=== PATIENT | female | born 1980 | race Caucasian/White ===

== ENCOUNTER 2017-03-16 11:51 | Emergency (ER) | payer MEDICAID, OTHER ==
[~2017-03-16] VITALS: Ht 167.6 cm; Wt 60.0 kg
[~2017-03-16 11:51] MED LIST: OMEP40CA2 PO
[2017-03-16 11:52] VITALS: BP 116/74; PULSE 82; RESP 17; TEMP 98.2; O2SAT 99
--- NOTE | 2017-03-16 12:12 | PD ---
HPI Chief Complaint: Injury Time Seen by Provider: 12:07 Travel History International Travel<30 days: No Contact w/Intl Traveler<30days: No Traveled to known affect area: No History of Present Illness HPI 36-year-old female presents emergency department for evaluation of right foot pain. Patient reports she was playing tag football with her son this morning when she injured the foot by either twisting or stubbing the foot on another player. She reports pain with weightbearing. Symptoms severity mild-to- moderate. No alleviating factors. She denies numbness/tingling/weakness of the extremity. There is no obvious deformity. Patient has no other medical complaint. [facility] Past Medical History Medical History: Denies Significant Hx Diminished Hearing: No ?: Not LMP: 03/02/14 : 8 Para: 5 Miscarriage: 3 Ovarian Cysts: Yes Social History Alcohol Use: No Tobacco Use: Yes (1/2 PPD) Substance Use: No Allergies-Medications (Allergen,Severity, Reaction): Coded Allergies: Penicillin (Verified Allergy, Severe, NAUSEA AND ITCHING., 03/16/17) Reported Meds & Prescriptions Reported Meds & Active Scripts Active Review of Systems Except as stated in HPI: all other systems reviewed are Neg Physical Exam Narrative GENERAL: Well-nourished, well-developed patient. SKIN: Focused skin assessment warm/dry. HEAD: Normocephalic. EYES: No scleral icterus. No injection or drainage. NECK: Supple, trachea midline. No JVD or lymphadenopathy. CARDIOVASCULAR: Regular rate and rhythm without murmurs, gallops, or rubs. RESPIRATORY: Breath sounds equal bilaterally. No accessory muscle use. GASTROINTESTINAL: Abdomen soft, non-tender, nondistended. MUSCULOSKELETAL: No cyanosis, or edema. Right foot: Point tenderness and mild swelling over the second and third metatarsal dorsal aspect. No deformity. 2+ distal pulses. Extremity is neurovascular intact. BACK: Nontender without obvious deformity. No CVA tenderness. Data Data Last Documented VS Vital Signs Date Time Temp Pulse Resp B/P Pulse Ox O2 Delivery O2 Flow Rate FiO2 03/16/17 11:52 98.2 82 17 116/74 99 Room Air Orders Foot, Limited (2vws) (03/16/17 ) [facility] Medical Decision Making Medical Screen Exam Complete: Yes Emergency Medical Condition: Yes Differential Diagnosis Metatarsal fracture versus midfoot sprain versus strain versus contusion Narrative Course 36-year-old female with chief complaint of right foot pain status post twisting injury while playing football this morning. Patient has difficulty weightbearing causes of the pain. The extremity is neurovascular intact. X- ray pending X-ray of right foot negative for fracture. Patient will be treated for contusion/midfoot sprain. Patient will be given crutches instructed to ice and elevate the extremity. Take [id number] Motrin as needed for pain. Follow up with her primary doctor. Diagnosis Primary Impression: Right foot sprain Qualified Code: S93.601A - Right foot sprain, initial encounter Referrals: Primary Care Physician Additional Instructions: Ice and elevate the extremity. Use the crutches as needed for weightbearing. Take [id number] Motrin [id number] milligrams by mouth every 6-8 hours as needed for pain. Follow-up with her primary care doctor for reevaluation. Disposition: 01 DISCHARGE HOME Condition: Stable Joyce Ray Mar 16, 2017 12:12
--- NOTE | 2017-03-16 13:00 | RADRPT ---
EXAM DATE/TIME: 03/16/2017 12:44 [facility] COMPARISON: No previous studies available for comparison. INDICATIONS : Complains of right foot pain after playing football with her children. MEDICAL HISTORY : None. SURGICAL HISTORY : None. ENCOUNTER: Initial ACUITY: 1 day PAIN SCORE: 8/10 LOCATION: Right foot FINDINGS: No definite fractures, or dislocations are identified. No definite lytic or sclerotic lesion is seen . The joint spaces are well maintained. CONCLUSION: Unremarkable study. Filippo Rizvi MD on March 16, 2017 at 12:58 Board Certified Radiologist. This report was verified electronically.
== END 2017-03-16 13:28 | disposition home or self-care (01) ==
LOC: NEPK 11:51
DX: S93.601A Unspecified sprain of right foot, initial encounter (principal); X50.1XXA Overexertion from prolonged static or awkward postures, initial encounter; Y93.62 Activity, american flag or touch football
CPT/HCPCS: 73620; 99283; E0113

== ENCOUNTER 2017-04-08 13:13 | Emergency (ER) | payer SELFPAY ==
[~2017-04-08] VITALS: Ht 172.7 cm; Wt 60.0 kg
[2017-04-08 13:15] VITALS: BP 138/77; PULSE 74; RESP 15; TEMP 98.8; O2SAT 98
--- NOTE | 2017-04-08 14:42 | PD ---
HPI Chief Complaint: Cold / Flu Symptoms Time Seen by Provider: 14:42 Travel History International Travel<30 days: No Contact w/Intl Traveler<30days: No Traveled to known affect area: No History of Present Illness HPI 36-year-old female presents the emergency department with four-day history of increasing upper respiratory symptoms including wheezing and cough which she describes as nonproductive. Patient is a history of smoker which she quit smoking 4 days ago and started wheezing. She denies fever or chills. She denies chest pain. She has no history of needing an inhaler in the past. No history of asthma or COPD. She denies chest pain, nausea, vomiting, significant headache, sore throat. Patient is complaining of left ear pain. No abdominal pain or diarrhea is noted. Patient is allergic to penicillin. PFSH Past Medical History Diminished Hearing: No ?: Not LMP: 04/03/17 : 8 Para: 5 Miscarriage: 3 Ovarian Cysts: Yes Social History Alcohol Use: No Tobacco Use: Yes (/ PPD) Substance Use: No Allergies-Medications (Allergen,Severity, Reaction): Coded Allergies: Penicillin (Verified Allergy, Severe, NAUSEA AND ITCHING., 03/16/17) Reported Meds & Prescriptions Reported Meds & Active Scripts Active Ventolin Hfa 18 GM Inh (Albuterol Sulfate) 90 Mcg/Act Aer 2 Puff INH Q4-6H PRN Prednisone 20 Mg Tab 20 Mg PO BID Bactrim DS (Sulfamethoxazole-Trimethoprim) 800-160 Mg Tab 1 Tab PO BID Review of Systems Except as stated in HPI: all other systems reviewed are Neg General / Constitutional: No: Fever Eyes: No: Visual changes HENT: Positive: Rhinitis, Rhinorrhea, Congestion, Earache, No: Headaches, Vertigo, Lightheadedness, Sore Throat, Nosebleed, Neck Stiffness, Neck Pain, Gingival Bleeding, Dental Difficulties, Ear Discharge Cardiovascular: No: Chest Pain or Discomfort Respiratory: Positive: Cough, Shortness of Breath, Wheezing, No: Sneezing Gastrointestinal: No: Nausea, Vomiting, Diarrhea, Abdominal Pain Genitourinary: No: Dysuria Musculoskeletal: No: Pain Skin: No Rash Neurologic: No: Weakness Psychiatric: No: Depression Endocrine: No: Polydipsia Hematologic/Lymphatic: No: Easy Bruising Physical Exam Narrative GENERAL: Patient appears in no acute distress. She is audibly wheezing. SKIN: Warm and dry. Normal color. Normal turgor. No diaphoresis. HEAD: Atraumatic. Normocephalic. EYES: Pupils equal and round. No scleral icterus. No injection or drainage. ENT: No nasal bleeding or discharge. Mucous membranes pink and moist. TMs are somewhat dull bilaterally but no injection. No sinus tenderness to palpation. Pharynx appears normal. No significant postnasal drip. NECK: Trachea midline. Supple and nontender. CARDIOVASCULAR: Regular rate and rhythm. RESPIRATORY: No accessory muscle use. Moderate diffuse wheezes to auscultation. No rhonchi or rales. Breath sounds equal bilaterally. GASTROINTESTINAL: Abdomen soft, non-tender, nondistended. Hepatic and splenic margins not palpable. MUSCULOSKELETAL: Extremities without clubbing, cyanosis, or edema. No obvious deformities. NEUROLOGICAL: Awake and alert. No obvious cranial nerve deficits. Motor grossly within normal limits. Five out of 5 muscle strength in the arms and legs. Normal speech. PSYCHIATRIC: Appropriate mood and affect; insight and judgment normal. Data Data Last Documented VS Vital Signs Date Time Temp Pulse Resp B/P Pulse Ox O2 Delivery O2 Flow Rate FiO2 04/08/17 13:15 98.8 74 15 138/77 98 Orders Chest, Single Ap (04/08/17 14:45) Prednisone (Deltasone) (04/08/17 14:45) Albuterol-Ipratropium Neb (Duoneb Neb) (04/08/17 14:45) Azithromycin (Zithromax) (04/08/17 14:45) [facility] Medical Decision Making Medical Screen Exam Complete: Yes Emergency Medical Condition: Yes Differential Diagnosis Upper restaurant infection. Bronchitis. Wheezing. Pneumonia. Narrative Course Patient is medically stable at time of exam. Chest x-ray is ordered. Duo nebs given. 60 mg Prednisone is given by mouth. Patient is given azithromycin 500 mg by mouth. Chest x-rays read as negative by radiologist. Patient feels subjectively better after DuoNeb. Breath sounds are improved. Patient will be continued on Bactrim DS twice a day 10 days. Patient is given albuterol metered-dose inhaler 2 puffs every 4-6 hours when necessary wheezing. Patient is given prednisone 20 mg twice a day 5 days. She is is encouraged to quit smoking. Patient follow-up with primary care physician or his [facility] as discussed. Diagnosis Primary Impression: Acute wheezy bronchitis Referrals: [facility] Patient Instructions: Acute Bronchitis (ED), General Instructions, How to Use a Metered-Dose Inhaler (ED) Additional Instructions: Chest x-rays read as negative by radiologist. Patient feels subjectively better after DuoNeb. Breath sounds are improved. Patient will be continued on Bactrim DS twice a day 10 days. Patient is given albuterol metered-dose inhaler 2 puffs every 4-6 hours when necessary wheezing. Patient is given prednisone 20 mg twice a day 5 days. She is is encouraged to quit smoking. Patient follow-up with primary care physician or his [facility] as discussed. Med/Other Pt SpecificInfo: Prescription(s) given Scripts Albuterol 18 GM Inh (Ventolin Hfa 18 GM Inh)90 Mcg/Act Aer2 Puff INH Q4-6H PRN ( SHORTNESS OF BREATH) #1 INHALER Prov:Rahul Christiansen MD 04/08/17 Prednisone 20 Mg Tab20 Mg PO BID #10 TAB Prov:Rahul Christiansen MD 04/08/17 Sulfamethoxazole-Trimethoprim (Bactrim DS)800-160 Mg Tab1 Tab PO BID #20 TAB Prov:Rahul Christiansen MD 04/08/17 Disposition: 01 DISCHARGE HOME Condition: Stable Pablito Sam Apr 08, 2017 14:42
[2017-04-08] MEDS ORDERED: AZITHROMYCIN 250 MG TAB PO ONE (14:45)
[2017-04-08] MEDS ORDERED: predniSONE 20 MG TAB PO ONE (14:45)
[2017-04-08] MEDS ORDERED: RESP: ALBUTEROL 2.5 MG/IPRATROPIUM 0.5 MG NEB (SCH) INH ONE (14:45)
--- NOTE | 2017-04-08 15:26 | RADRPT ---
EXAM DATE/TIME: 04/08/2017 14:50 [facility] COMPARISON: CHEST SINGLE AP, March 25, 2012, 15:26. INDICATIONS : Cough MEDICAL HISTORY : None. SURGICAL HISTORY : None. ENCOUNTER: Initial ACUITY: 3 days PAIN SCORE: 0/10 LOCATION: chest FINDINGS: A single view of the chest demonstrates the lungs to be symmetrically aerated without evidence of mas s, infiltrate or effusion. The cardiomediastinal contours are unremarkable. Osseous structures are intact. CONCLUSION: No evidence of acute cardiopulmonary disease. Jevon Duncan MD on April 08, 2017 at 15:24 Board Certified Radiologist. This report was verified electronically.
[2017-04-08] MEDS ORDERED: BACT800T5 PO (15:57)
[2017-04-08] MEDS ORDERED: PRED20 PO (15:57)
[2017-04-08] MEDS ORDERED: VENTAER INH (15:57)
== END 2017-04-08 16:17 | disposition home or self-care (01) ==
LOC: NEPD 13:13
DX: J20.9 Acute bronchitis, unspecified (principal); F17.210 Nicotine dependence, cigarettes, uncomplicated
CPT/HCPCS: 71010; 94664; 99284; J7512

== ENCOUNTER 2018-01-17 09:23 | Emergency (ER) | payer SELFPAY ==
[~2018-01-17] VITALS: Ht 172.7 cm; Wt 66.0 kg
[~2018-01-17 09:23] MED LIST changes: +BACT800T5 PO; +MAGICPED SWISH-SWAL; -OMEP40CA2 PO; +PRED20 PO; +VENTAER INH
[2018-01-17 09:24] VITALS: BP 142/70; PULSE 65; RESP 16; TEMP 98.1; O2SAT 100
[2018-01-17] MEDS ORDERED: IBUP1TAB7 PO (09:50)
[2018-01-17] MEDS ORDERED: BENZ100 PO (09:50)
[2018-01-17] MEDS ORDERED: VENTAER INH (09:50)
[2018-01-17] MEDS ORDERED: AZIT250T3 PO (09:51)
--- NOTE | 2018-01-17 09:54 | PD ---
HPI Chief Complaint: Cold / Flu Symptoms Time Seen by Provider: 09:42 Travel History International Travel<30 days: No Contact w/Intl Traveler<30days: No Traveled to known affect area: No History of Present Illness HPI 37-year-old female here with productive cough 1 week. Patient is a smoker. She reports she frequently gets bronchitis. No fever chills. No chest pain or shortness of breath. She is also reporting right sided low back pain that radiates into the buttocks and thigh. No injury or trauma. No paresthesia or weakness of the extremity. No incontinence or saddle anesthesia. Symptom severity is mild to moderate. Aggravated by movement slightly relieved with OTC ibuprofen. PFSH Past Medical History Medical History: Denies Significant Hx Diminished Hearing: No Respiratory: Yes (bronchitis) Tetanus Vaccination: < 5 Years Influenza Vaccination: No ?: Not LMP: 1 WEEK AGO : 8 Para: 5 Miscarriage: 3 Ovarian Cysts: Yes Past Surgical History Surgical History: No Previous Surgery Social History Alcohol Use: No Tobacco Use: Yes (/2 PPD) Substance Use: No Allergies-Medications (Allergen,Severity, Reaction): Coded Allergies: penicillin G (Unverified Allergy, Severe, NAUSEA AND ITCHING., 01/17/18) Reported Meds & Prescriptions Reported Meds & Active Scripts Active No Active Prescriptions or Reported Medications Review of Systems Except as stated in HPI: all other systems reviewed are Neg General / Constitutional: No: Fever Eyes: No: Visual changes HENT: No: Headaches Cardiovascular: No: Chest Pain or Discomfort Respiratory: Positive: Cough Gastrointestinal: No: Abdominal Pain Genitourinary: No: Dysuria Physical Exam Narrative GENERAL: Alert and well-appearing 36-year-old female SKIN: Warm and dry. HEAD: Normocephalic. EYES: No scleral icterus. No injection or drainage. NECK: Supple, trachea midline. No JVD or lymphadenopathy. CARDIOVASCULAR: Regular rate and rhythm without murmurs, gallops, or rubs. RESPIRATORY: Breath sounds equal bilaterally. No accessory muscle use. Rhonchorous cough GASTROINTESTINAL: Abdomen soft, non-tender, nondistended. MUSCULOSKELETAL: No cyanosis, or edema. Normal strength and sensation in the lower extremities. BACK: Tenderness to the right sacroiliac region. Without obvious deformity. No CVA tenderness. Data Data Last Documented VS Vital Signs Date Time Temp Pulse Resp B/P (MAP) Pulse Ox O2 Delivery O2 Flow Rate FiO2 01/17/18 09:24 98.1 65 16 142/70 (94) 100 MDM Medical Decision Making Medical Screen Exam Complete: Yes Emergency Medical Condition: Yes Differential Diagnosis Viral bronchitis, PNA, URI Narrative Course 37-year-old female here with bronchitis and mild right-sided sciatica. She is well-appearing. Diagnosis Primary Impression: Bronchitis Additional Impression: Sciatica Qualified Codes: M54.31 - Sciatica, right side Referrals: Primary Care Physician Scripts Azithromycin (Azithromycin) 250 Mg Tab 250 MG PO DIRECTED for Infection, #6 TAB 0 Refills Take 2 tabs (500 mg) on day 1 then 1 tab daily x 4 days. Prov: Joyec Ray 01/17/18 Benzonatate (Tessalon Perles) 100 Mg Cap 200 MG PO TID Y for COUGH, #14 CAP 0 Refills Prov: Joyce Ray 01/17/18 Ibuprofen (Ibuprofen) 800 Mg Tab 800 MG PO Q6HR Y for PAIN, #40 TAB 0 Refills Prov: Joyce Ray 01/17/18 Albuterol 18 GM Inh (Ventolin Hfa 18 GM Inh) 90 Mcg/Act Aer 2 PUFF INH Q4-6H Y for SHORTNESS OF BREATH, #1 INHALER Prov: Joyce Ray 01/17/18 Disposition: 01 DISCHARGE HOME Condition: Stable Joyce Ray January 17, 2018 09:54
== END 2018-01-17 10:02 | disposition home or self-care (01) ==
LOC: PHEFT 09:23
DX: J40 Bronchitis, not specified as acute or chronic (principal); M54.41 Lumbago with sciatica, right side; F17.200 Nicotine dependence, unspecified, uncomplicated
CPT/HCPCS: 99283